=== PATIENT | female | born 1960 | race Caucasian/White ===

== ENCOUNTER → 2018-04-20 | Outpatient (CLI) | payer OTHER ==
--- NOTE | 2018-04-20 08:53 | Diagnostic Imaging Report ---
EXAMINATION: CHEST 2 VIEWS INDICATION: Acute respiratory infection COMPARISON: None FINDINGS: TUBES and LINES: None. LUNGS: Lungs are well inflated. Lungs are clear. There is no evidence of pneumonia or pulmonary edema. PLEURA: No pleural effusion or pneumothorax. HEART AND MEDIASTINUM: The cardiomediastinal silhouette is unremarkable. BONES AND SOFT TISSUES: No acute osseous lesion. Soft tissues are unremarkable. UPPER ABDOMEN: No free air under the diaphragm. IMPRESSION: No acute radiographic abnormality. Signed by: Dr. Leon Pickett MD on 04/20/2018 8:49 AM
--- NOTE | 2018-04-20 13:10 | Diagnostic Imaging Report ---
EXAM: US ABDOMEN COMPLETE DATE: 04/20/2018 7:44 AM INDICATION: Right upper quadrant abdominal pain. COMPARISON: None TECHNIQUE: Transverse and longitudinal dinero scale and color doppler sonographic images of the upper abdomen were obtained. FINDINGS: LIVER 14.3 cm in the right midclavicular line. Increased echogenicity of the liver with normal contour, no evidence of solid mass. There is a simple appearing 1.6 cm left hepatic lobe cyst. SPLEEN 9.2 cm in maximum diameter. Normal echogenicity, no masses. GALLBLADDER Mild sludge in the gallbladder. No gallbladder wall thickening, distension, stone, or pericholecystic fluid. Negative reported sonographic Kowalski sign. BILE DUCTS No intra nor extra-hepatic biliary dilation. Common bile duct measures 0.3cm PANCREAS: Visualized portions are normal. The pancreatic tail is not visualized. RIGHT KIDNEY: 9.5 cm Echogenicity: Normal Collecting System: No hydronephrosis Stones: None Cyst/Mass: There is a 9 mm hyperechoic focus with twinkle artifact in the right mid pole kidney. LEFT KIDNEY: 10.2 cm Echogenicity: Normal Collecting System: No hydronephrosis Stones: None Cyst/Mass: None VESSELS: Aorta: Visualized portions are within normal size limits Inferior Vena Cava: Visualized portions are normal Main Portal Vein: 0.8 cm, normal size with hepatopetal flow. FREE FLUID: None IMPRESSION: Gallbladder sludge without sonographic evidence of cholecystitis. Non-obstructing 9 mm right mid pole renal stone. Hepatic steatosis. Simple appearing left hepatic lobe cyst. Signed by: Dr. Leon Pickett MD on 04/20/2018 1:06 PM
== END ==
LOC: US 07:32
PROVIDERS: ATTEND Family Medicine
DX: R10.11 Right upper quadrant pain (principal)
CPT/HCPCS: 71046; 76700